=== PATIENT | female | born 1940 | race Hispanic/Latino ===

== ENCOUNTER 2016-06-22 16:46 | Emergency (ER) | payer MEDICARE, MEDICAID ==
[2016-06-22 17:46] LABS: ALT (SGPT) 12 U/L (0-55); AST (SGOT) 18 U/L (5-34); Alkaline Phosphatase 99 U/L (40-150); Anion Gap 15 mmol/L (10-20); BUN (Urea Nitrogen) 19 mg/dL (9.8-20.1); Bilirubin, Total 0.4 mg/dL (0.2-1.2); Calc. Creatinine Clearance 0 mL/min (70-130); Calcium 9.4 mg/dL (7.8-10.44); Carbon Dioxide 21 mmol/L (23-31); Chloride 104 mmol/L (98-107); Estimated GFR-MDRD 27; Globulin 3.3 g/dL (2.4-3.5); Protein, Total 7.3 g/dL (5.8-8.1)
[2016-06-22 17:54] LABS: Bilirubin Negative (Negative); Blood, Urine Small (Negative); Glucose, Urine (Dipstick) Negative (Negative); Ketone, Urine Negative (Negative); Nitrite Negative (Negative); Protein, Urine (Dipstick) 100 mg/dL (Neg-Trace)
[2016-06-22 17:59] LABS: Bacteria/HPF 3+ HPF (None Seen); WBC/HPF 21-50 HPF (0-3)
[2016-06-22 18:13] LABS: Band 1 % (5-11); Hematocrit 33.2 % (36.0-47.0); Mean Platelet Volume 8.1 fL (7.4-10.4); Neutrophil 77 % (42-75); Red Blood Cell (RBC) Count 3.79 mill/uL (4.20-5.40); White Blood Cell (WBC) Count 9.2 thou/uL (4.8-10.8)
[2016-06-22] MEDS ORDERED: Ciprofloxacin 500 MG TAB ONE (18:37)
--- NOTE | 2016-06-22 18:46 | ERRECORD ---
[facility] EMERGENCY RECORD HPI PNEUMONIA (17:14 JLOY) CHIEF COMPLAINT: Patient presents for evaluation of chest pain, Patient presents for evaluation of cough, non-productive, Patient presents for evaluation of fever, subjective, Patient presents for evaluation of shortness of breath, Patient presents for evaluation of Pt with cough for 'some time', at least a couple weeks. Worse x6 days with subj fever at night, left sided chest and back pain with cough or deep breath, and SOB. Reports it feels like her previous pneumonia. HISTORIAN: History provided by patient. LOCATION: Symptoms are localized, most severe in the left upper chest. TIME COURSE: Gradual onset of symptoms, Symptoms are worsening. ASSOCIATED WITH: Associated with chest pain, Associated with chills, Associated with dyspnea on exertion, Associated with fever, No associated nasal congestion, Associated with shortness of breath. COMPLICATING FACTORS: Complicating factors for pneumonia include:, recent antibiotics, started bactrim for UTI 4 days ago. EXACERBATED BY: Patient's condition exacerbated by deep breaths. RELIEVED BY: Patient's condition relieved by nothing. ROS (17:17 JLOY) CONSTITUTIONAL: Historian reports chills, reports fever. EYES: Historian denies eye pain, denies eye redness, denies eye discharge. ENT: Historian denies rhinorrhea, denies sore throat. CARDIOVASCULAR: Historian reports chest pain, pleuritic, Historian reports dyspnea on exertion. RESPIRATORY: Historian reports cough, reports shortness of breath, denies sputum. GI: Historian denies abdominal pain, denies diarrhea, reports nausea, denies vomiting. GENITOURINARY FEMALE: Historian reports dysuria, denies frequency, denies hematuria. lower abd pain with urination for which her PCP started Bactrim 4 days ago. No change. MUSCULOSKELETAL: Historian reports back pain. SKIN: Historian denies rash, denies skin changes. NEUROLOGIC: Historian denies dizziness, occasional YU. PAST MEDICAL HISTORY MEDICAL HISTORY: Notes: as listed plus, Past medical history includes history of diabetes, Pill only, Past medical history includes endocrine disease, hypothyroidism,includes gastrointestinal disease, gastroesophageal reflux disease,history of hyperlipidemia, high cholesterol,history of hypertension,pulmonary disease, pneumonia. includes gastrointestinal &a-1R&a+25V*p+0X*v2001I*c202B*c15G*c2P*p-0X&a-25V&a+1R Name: Dionne Wise : 1940 F75 MedRec: [id number] AcctNum: [id number] Prepared: WedJun 22, 2016 19:04 by Interface Page [address] [facility] EMERGENCY RECORD disease, lower gastrointestinal bleed. (16:57 GHIA) FEMALE SURGICAL HISTORY: as listed, Surgical history of cholecystectomy, Surgical history of hysterectomy. (16:57 GHIA) PSYCHIATRIC HISTORY: Psychiatric history includes, anxiety. (16:57 GHIA) SOCIAL HISTORY: Social History includes lives alone, Patient denies alcohol use, Patient denies drug use, Patient currently uses tobacco, smokes cigarettes, Occasional or some day smoker. (16:57 GHIA) NOTES: Nursing records reviewed, Agree with nursing records. (17:18 OY) KNOWN ALLERGIES No Known Allergies (Unconfirmed) No Known Drug Allergies CURRENT MEDICATIONS Tradjenta: TABLET : Strength - 5 mg : ORAL Patient Dose: 1 tab(s) Oral once a day (in the morning). (16:58 MSPE) enalapril maleate: TABLET : Strength - 20 mg : ORAL Patient Dose: 2 tab(s) Oral once a day (in the morning). (16:58 MSPE) metFORMIN: TABLET : Strength - 500 mg : ORAL Patient Dose: 2 tab(s) Oral 2 times a day. (16:58 MSPE) levothyroxine: TABLET : Strength - 50 mcg : ORAL Patient Dose: 2 tab(s) Oral once a day (in the morning). (16:58 MSPE) glipiZIDE: TABLET : Strength - 10 mg : ORAL Patient Dose: 20 mg Oral once a day (in the morning). (16:58 MSPE) clopidogrel: TABLET : Strength - 75 mg : ORAL Patient Dose: 1 tab(s) Oral once a day. (16:59 MSPE) ranitidine HCl: TABLET : Strength - 150 mg : ORAL Patient Dose: 1 tab(s) Oral 2 times a day. (16:59 MSPE) atorvastatin: TABLET : Strength - 40 mg : ORAL Patient Dose: 1 tab(s) Oral once a day (at bedtime). (17:00 MSPE) carvedilol: TABLET : Strength - 3.125 mg : ORAL Patient Dose: 1 tab(s) Oral 2 times a day. (17:01 MSPE) &a-1R&a+25V*p+0X*[id number]*c202B*c15G*c2P*p-0X&a-25V&a+1R Name: Dionne Wise : 1940 F75 MedRec: [id number] AcctNum: [id number] Prepared: WedJun 22, 2016 19:04 by Interface Page [address] [facility] EMERGENCY RECORD Bactrim DS: TABLET : Strength - 800 mg-160 mg : ORAL Patient Dose: 1 tab(s) Oral 2 times a day.started 06/18/16 x 10 days for UTI. (17:01 MSPE) VITAL SIGNS VITAL SIGNS: BP: 107/77, Pulse: 103, Resp: 19, Temp: 99.0 (Oral), Pain: 8, O2 sat: 98 on Room Air, Time: 06/22/2016 16:52. (16:52 GHIA) BP: 108/75, Pulse: 86, Resp: 16, O2 sat: 96 on Room Air, Time: 06/22/2016 18:40. (18:40 MSPE) BP: 105/63, Pulse: 93, Resp: 24, O2 sat: 96 on Room Air, Time: 06/22/2016 17:45. (17:45 MSPE) BP: 97/65, Pulse: 92, Resp: 24, O2 sat: 97 on Room Air, Time: 06/22/2016 18:00. (18:00 MSPE) PHYSICAL EXAM (17:18 JLOY) CONSTITUTIONAL: Vital signs reviewed, Patient appears non toxic, Patient alert and oriented to person, place and time. EYES: Eye exam included findings of eyelids normal to inspection, Pupils equally round and reactive to light, Conjunctiva normal. ENT: Pharynx exam normal, Uvula exam normal, Tonsil exam normal, Mouth exam normal, mucous membranes moist. NECK: Neck exam included findings of normal range of motion, Trachea midline, no cervical adenopathy. RESPIRATORY CHEST: Respiratory exam included findings of no respiratory distress, Breath sounds clear, No wheezing, No rales, No rhonchi, Chest exam included findings of chest movement symmetrical. CARDIOVASCULAR: Cardiovascular exam included findings of heart rate regular rate and rhythm, Heart sounds normal, normal S1, normal S2, no murmurs, no rub, no gallop. ABDOMEN FEMALE: Abdominal exam included findings of abdomen tender, to the epigastric region, mild intensity, Bowel sounds normal, Liver normal, Spleen normal, no peritoneal signs, no rigidity, no guarding, no rebound. BACK: Back exam included findings of normal inspection, range of motion normal. UPPER EXTREMITY: Upper extremity exam included findings of inspection normal, Radial pulse normal, no cyanosis, no clubbing, no edema. LOWER EXTREMITY: Lower extremity exam included findings of inspection normal, no edema, no calf tenderness. NEURO: Laura coma scale 15, Neuro exam findings include patient oriented to person, place and time, Speech normal. SKIN: Skin exam included findings of skin warm, dry, and normal in color, no rash. PSYCHIATRIC: Normal affect. MEDICATION ADMINISTRATION SUMMARY Drug Name: ciprofloxacin HCl oral, Dose Ordered: 500 mg, Route: Oral, &a-1R&a+25V*p+0X*[id number]*c202B*c15G*c2P*p-0X&a-25V&a+1R Name: Dionne Wise : 1940 F75 MedRec: [id number] AcctNum: [id number] Prepared: WedJun 22, 2016 19:04 by Interface Page [address] [facility] EMERGENCY RECORD Status: Given, Time: 18:39 06/22/2016, Detailed record available in Medication Service section. PROBLEM LIST No recorded problems DIAGNOSIS (18:28 THEA) FINAL: PRIMARY: UTI, ADDITIONAL: Acute bronchitis. PRESCRIPTION (18:27 THEA) ciprofloxacin HCl oral: TABLET : 500 mg : ORAL : Quantity: 500 Unit: mg Route: ORAL Schedule: 2 times a day Dispense: 5 days May substitute. Refills: No Refills . NOTES: No Refills. DISPOSITION PATIENT: Disposition Type: Discharge, Disposition: *Discharge Home. (18:28 THEA) Patient left the department. (19:01 TROY) Trejo: GABI=RANI Becerra, Vikki SIDHU=MD Arun, Moise WALKERE=RANI Mcnamara, Francia &a-1R&a+25V*p+0X*[id number]*c202B*c15G*c2P*p-0X&a-25V&a+1R Name: Dionne Wise : 1940 F75 MedRec: [id number] AcctNum: [id number] Prepared: WedJun 22, 2016 19:04 by Interface Page 4 of 4 pMD MTDD
--- NOTE | 2016-06-22 18:56 | PICIS ---
[facility] EMERGENCY RECORD TRIAGE (16:52 GHIA) TRIAGE NOTES: Fever, bodyaches,cough (non productive). (16:52 GHIA) PATIENT: NAME: Dionne Wise, AGE: 75, GENDER: female, : Maria Guadalupe 1940, TIME OF GREET: WedJun 22, 2016 16:48, PREFERRED LANGUAGE: Syriac, ETHNICITY: or , ECODE BILLING MAP: [facility] ER, SSN: [id number], Zip Code: [address], KG WEIGHT: 62.60, , , PERSON ID: [id number], PCP: MD Prajapati Katherine. (16:52 GHIA) PHONE: HOME. (16:59) COMPLAINT: FEVER SINCE SAT,OFF/ON,HURTS TO BREATHE. (16:52 GHIA) ADMISSION: URGENCY: 3 Urgent, ADMISSION SOURCE: Home, TRANSPORT: CAR, BED: TRIAGE. (16:52 GHIA) ASSESSMENT: Assessment: Pt with pain with deep breath, fever, bodyaches; feels like "pneumonia" she had before. (16:57 GHIA) PAIN: Patient complains of pain described as, Location with deep breath, Pain is constant. (16:57 GHIA) IMMUNIZATIONS: Flu vaccine up to date, Tetanus immunization up to date, Pneumococcal vaccine up to date. (16:57 GHIA) SIRS SCORING: Heart Rate 55-109 (0), Temp range 96.8-101.1 (0), respiratory rate 12-24 (0), Mental Status altered: no (0). (16:57 GHIA) TRIAGE SCREENING: Patient denies suicidal ideation, Patient denies presence of domestic violence. (16:57 GHIA) LMP: LMP: Hysterectomy. (16:57 GHIA) TREATMENTS IN PROGRESS: Treatments given Prehospital: no meds today. (16:57 GHIA) PROVIDERS: TRIAGE NURSE: Vikki Becerra RN. (16:52 GHIA) VITAL SIGNS: BP 107/77, Pulse 103, Resp 19, Temp 99.0, (Oral), Pain 8, O2 Sat 98, on Room Air, Time 06/22/2016 16:52. (16:52 GHIA) PREVIOUS VISIT ALLERGIES: No Known Drug Allergies. (16:52 GHIA) No Known Drug Allergies. (16:57 GHIA) KNOWN ALLERGIES No Known Allergies (Unconfirmed) No Known Drug Allergies CURRENT MEDICATIONS Tradjenta: TABLET : Strength - 5 mg : ORAL Patient Dose: 1 tab(s) Oral once a day (in the morning). (16:58 MSPE) enalapril maleate: TABLET : Strength - 20 mg : ORAL Patient Dose: 2 tab(s) Oral once a day (in the morning). (16:58 MSPE) metFORMIN: TABLET : Strength - 500 mg : ORAL Patient Dose: 2 tab(s) Oral 2 times a day. (16:58 MSPE) &a-1R&a+25V*p+0X*r4966K*c202B*c15G*c2P*p-0X&a-25V&a+1R Name: Dionne Wise : 1940 F75 MedRec: [id number] AcctNum: [id number] Prepared: WedJun 22, 2016 19:10 by Interface Page 1 of 8 pMD [facility] EMERGENCY RECORD levothyroxine: TABLET : Strength - 50 mcg : ORAL Patient Dose: 2 tab(s) Oral once a day (in the morning). (16:58 MSPE) glipiZIDE: TABLET : Strength - 10 mg : ORAL Patient Dose: 20 mg Oral once a day (in the morning). (16:58 MSPE) clopidogrel: TABLET : Strength - 75 mg : ORAL Patient Dose: 1 tab(s) Oral once a day. (16:59 MSPE) ranitidine HCl: TABLET : Strength - 150 mg : ORAL Patient Dose: 1 tab(s) Oral 2 times a day. (16:59 MSPE) atorvastatin: TABLET : Strength - 40 mg : ORAL Patient Dose: 1 tab(s) Oral once a day (at bedtime). (17:00 MSPE) carvedilol: TABLET : Strength - 3.125 mg : ORAL Patient Dose: 1 tab(s) Oral 2 times a day. (17:01 MSPE) Bactrim DS: TABLET : Strength - 800 mg-160 mg : ORAL Patient Dose: 1 tab(s) Oral 2 times a day.started 06/18/16 x 10 days for UTI. (17:01 MSPE) VITAL SIGNS VITAL SIGNS: BP: 107/77, Pulse: 103, Resp: 19, Temp: 99.0 (Oral), Pain: 8, O2 sat: 98 on Room Air, Time: 06/22/2016 16:52. (16:52 GHIA) BP: 108/75, Pulse: 86, Resp: 16, O2 sat: 96 on Room Air, Time: 06/22/2016 18:40. (18:40 MSPE) BP: 105/63, Pulse: 93, Resp: 24, O2 sat: 96 on Room Air, Time: 06/22/2016 17:45. (17:45 MSPE) BP: 97/65, Pulse: 92, Resp: 24, O2 sat: 97 on Room Air, Time: 06/22/2016 18:00. (18:00 MSPE) NURSING ASSESSMENT: HEAD-TO-TOE (16:57 GHIA) CONSTITUTIONAL: Patient arrives, via hospital wheelchair, Gait steady, History obtained from patient, Patient appears comfortable, Patient cooperative, Patient alert, Oriented to person, place and time, Skin warm, Skin dry, Skin normal in color, Mucous membranes pink, Mucous membranes moist, Patient is well-groomed, Patient complains of Pain with deep breath; fever; bodyaches, Pt in room in bed in gown. Assess. Plan of care of pt in Er discussed. PAIN: aching pain, chest with deep breath, Onset of pain 6 days ago, constant, on a scale 0-10 patient rates pain as 8, pt is currently on antibx for bladder infection. SKIN: Skin assessment findings include skin warm, Skin dry, Skin normal in color, Notes: intact. &a-1R&a+25V*p+0X*x5881R*c202B*c15G*c2P*p-0X&a-25V&a+1R Name: Dionne Wise : 1940 F75 MedRec: [id number] AcctNum: [id number] Prepared: WedJun 22, 2016 19:10 by Interface Page 2 of 8 pMD [facility] EMERGENCY RECORD RESPIRATORY/CHEST: Respiratory assessment findings include respiratory effort easy, Associated with cough, non-productive, Associated with fever, Maximum temperature unk temp per pt, oral. CARDIOVASCULAR: Cardiovascular assessment findings include heart rate, tachycardic, Heart rhythm, sinus tachycardia. ABDOMEN: Abdomen assessment findings include abdomen symmetrical, no associated nausea, no associated vomiting, no associated diarrhea, no associated constipation. GENITOURINARY FEMALE: Associated with urinary complaints, burning, a foul odor, 5 days on antibx, Notes: Pt states she doesn't feel like she is getting better. NOTES: Emotional support needed and given, Patient tolerated procedure well. SAFETY: Side rails up, Cart/Stretcher in lowest position, Family at bedside, Call light within reach, Hospital ID band on. NURSING PROCEDURE: DISCHARGE NOTE (18:47 MSPE) DISCHARGE: Patient discharged to home, ambulating without assistance, accompanied by other family member, Summary of Care printed/ provided, Discharge instructions given to patient, Simple or moderate discharge teaching performed, Prescriptions given and instructions on side effects given, Above person(s) verbalized understanding of discharge instructions and follow-up care, Patient treated and evaluated by physician. BELONGINGS: Belongings remain with patient. NURSING PROCEDURE: IV (17:20 GHIA) PATIENT IDENITIFIER: Patient actively involved in identification process, Patient's identity verified by patient stating name, Patient's identity verified by hospital ID bracelet. IV SITE 1: IV established, to the right antecubital, using a 20 gauge catheter, in one attempt, IV site prepped with chloraprep, Labs drawn at time of placement, labeled in the presence of the patient and sent to lab. FOLLOW-UP SITE 1: After procedure, 2x3 ensure dressing applied, After procedure, no swelling at IV site, After procedure, no redness at IV site. NOTES: Emotional support needed and given, Patient tolerated procedure well. SAFETY: Side rails up, Cart/Stretcher in lowest position, Call light within reach, Hospital ID band on, Friend(s) at bedside. NURSING PROCEDURE: NURSE NOTES NURSES NOTES: Notes: Er at bedside. (17:11 GHIA) Notes: Pt cheerful and cooperative for IV start. (17:26 GHIA) Patient assisted to bathroom with steady gait, Patient in no apparent distress, Assistance offered to patient, Notes: I walked with &a-1R&a+25V*p+0X*d3927S*c202B*c15G*c2P*p-0X&a-25V&a+1R Name: Dionne Wise : 1940 F75 MedRec: [id number] AcctNum: [id number] Prepared: WedJun 22, 2016 19:10 by Interface Page 3 of 8 pMD [facility] EMERGENCY RECORD pt. (17:30 GHIA) Assistance offered to patient, Patient is awaiting results, Notes: Pt back to room; gait slightly unstready. (17:40 GHIA) Notes: Pt to RAD via wheelchair. (17:41 GHIA) Notes: Er Dr at bedside. (18:22 GHIA) Notes: IV dc'd with cath intact. 2x2 dressing applied. (18:45 MSPE) ORDER DETAILS Order Name: CBC with Differential, Status: Active, Time: 17:14 06/22/2016, User: THEA, - Ordered for: MD Dias Joshua, - Entered by: MD Dias Joshua - [facility] Jun 22, 2016 17:14, - Quantity: 1, Order Name: Comprehensive Metabolic Panel, Status: Active, Time: 17:14 06/22/2016, User: THEA, - Ordered for: MD Dias Joshua, - Entered by: MD Dias Joshua - [facility] Jun 22, 2016 17:14, - Quantity: 1, Order Name: Culture, Urine, Status: Active, Time: 18:20 06/22/2016, User: THEA, - Ordered for: MD Dias Joshua, - Entered by: MD Dias Joshua - [facility] Jun 22, 2016 18:20, - Quantity: 1, Order Name: Influenza A&B Ag Screen, Status: Active, Time: 17:33 06/22/2016, User: GABI, - Ordered for: MD Dias Joshua, - Entered by: RANI Becerra, Vikki - [facility] Jun 22, 2016 17:33, - Quantity: 1, Order Name: Lactic Acid with repeat, Status: Active, Time: 17:19 06/22/2016, User: THEA, - Ordered for: MD Dias Joshua, - Entered by: MD Dias Joshua - [facility] Jun 22, 2016 17:19, - Quantity: 1, Order Name: SALINE LOCK, Status: Done, Time: 17:27 06/22/2016, User: GABI, - Ordered for: MD Dias Joshua, - Entered by: MD Dias Joshua - [facility] Jun 22, 2016 17:14, - Quantity: 1, Order Name: Urinalysis with Microscopic, Status: Active, Time: 17:19 06/22/2016, User: THEA, - Ordered for: MD Dias Joshua, - Entered by: MD Dias Joshua - [facility] Jun 22, 2016 17:19, - Quantity: 1, Order Name: XR Chest Pa & Lat STANDARD, Status: Active, Time: 17:14 06/22/2016, User: THEA, - Ordered for: MD Dias Joshua, - Entered by: MD Dias Joshua - [facility] Jun 22, 2016 17:14, - Quantity: 1. &a-1R&a+25V*p+0X*c2241X*c202B*c15G*c2P*p-0X&a-25V&a+1R Name: Dionne Wise : 1940 F75 MedRec: [id number] AcctNum: [id number] Prepared: WedJun 22, 2016 19:10 by Interface Page 4 of 8 D [facility] EMERGENCY RECORD MEDICATION ADMINISTRATION SUMMARY Drug Name: ciprofloxacin HCl oral, Dose Ordered: 500 mg, Route: Oral, Status: Given, Time: 18:39 06/22/2016, Detailed record available in Medication Service section. MEDICATION SERVICE (18:39 THEA) ciprofloxacin HCl oral: Order: ciprofloxacin HCl oral (ciprofloxacin HCl) - Dose: 500 mg : Oral Ordered by: Moise Dias MD Entered by: Moise Dias MD WedJun 22, 2016 18:26 , Acknowledged by: Francia Mcnamara RN WedJun 22, 2016 18:37 Documented as given by: Francia Mcnamara RN WedJun 22, 2016 18:39 Patient, Medication, Dose, Route and Time verified prior to administration. Amount given: 500mg, Site: Medication administered P.O., Patient appears Awake and alert- acceptable, Correct patient, time, route, dose and medication confirmed prior to administration, Patient advised of actions and side-effects prior to administration, Allergies confirmed and medications reviewed prior to administration, Patient in position of comfort, Side rails up, Cart in lowest position, Family at bedside. HPI PNEUMONIA (17:14 [facility]) CHIEF COMPLAINT: Patient presents for evaluation of chest pain, Patient presents for evaluation of cough, non-productive, Patient presents for evaluation of fever, subjective, Patient presents for evaluation of shortness of breath, Patient presents for evaluation of Pt with cough for 'some time', at least a couple weeks. Worse x6 days with subj fever at night, left sided chest and back pain with cough or deep breath, and SOB. Reports it feels like her previous pneumonia. HISTORIAN: History provided by patient. LOCATION: Symptoms are localized, most severe in the left upper chest. TIME COURSE: Gradual onset of symptoms, Symptoms are worsening. ASSOCIATED WITH: Associated with chest pain, Associated with chills, Associated with dyspnea on exertion, Associated with fever, No associated nasal congestion, Associated with shortness of breath. COMPLICATING FACTORS: Complicating factors for pneumonia include:, recent antibiotics, started bactrim for UTI 4 days ago. EXACERBATED BY: Patient's condition exacerbated by deep breaths. RELIEVED BY: Patient's condition relieved by nothing. ROS (17:17 [facility]) CONSTITUTIONAL: Historian reports chills, reports &a-1R&a+25V*p+0X*i8641W*c202B*c15G*c2P*p-0X&a-25V&a+1R Name: Dionne Wise : 1940 F75 MedRec: [id number] AcctNum: [id number] Prepared: WedJun 22, 2016 19:10 by Interface Page 5 of 8 pMD [facility] EMERGENCY RECORD fever. EYES: Historian denies eye pain, denies eye redness, denies eye discharge. ENT: Historian denies rhinorrhea, denies sore throat. CARDIOVASCULAR: Historian reports chest pain, pleuritic, Historian reports dyspnea on exertion. RESPIRATORY: Historian reports cough, reports shortness of breath, denies sputum. GI: Historian denies abdominal pain, denies diarrhea, reports nausea, denies vomiting. GENITOURINARY FEMALE: Historian reports dysuria, denies frequency, denies hematuria. lower abd pain with urination for which her PCP started Bactrim 4 days ago. No change. MUSCULOSKELETAL: Historian reports back pain. SKIN: Historian denies rash, denies skin changes. NEUROLOGIC: Historian denies dizziness, occasional YU. PAST MEDICAL HISTORY MEDICAL HISTORY: Notes: as listed plus, Past medical history includes history of diabetes, Pill only, Past medical history includes endocrine disease, hypothyroidism,includes gastrointestinal disease, gastroesophageal reflux disease,history of hyperlipidemia, high cholesterol,history of hypertension,pulmonary disease, pneumonia. includes gastrointestinal disease, lower gastrointestinal bleed. (16:57 GHIA) FEMALE SURGICAL HISTORY: as listed, Surgical history of cholecystectomy, Surgical history of hysterectomy. (16:57 GHIA) PSYCHIATRIC HISTORY: Psychiatric history includes, anxiety. (16:57 GHIA) SOCIAL HISTORY: Social History includes lives alone, Patient denies alcohol use, Patient denies drug use, Patient currently uses tobacco, smokes cigarettes, Occasional or some day smoker. (16:57 GHIA) NOTES: Nursing records reviewed, Agree with nursing records. (17:18 JLOY) PHYSICAL EXAM (17:18 JLOY) CONSTITUTIONAL: Vital signs reviewed, Patient appears non toxic, Patient alert and oriented to person, place and time. EYES: Eye exam included findings of eyelids normal to inspection, Pupils equally round and reactive to light, Conjunctiva normal. ENT: Pharynx exam normal, Uvula exam normal, Tonsil exam normal, Mouth exam normal, mucous membranes moist. NECK: Neck exam included findings of normal range of motion, Trachea midline, no cervical adenopathy. RESPIRATORY CHEST: Respiratory exam included findings of no respiratory distress, Breath sounds clear, No wheezing, No rales, No rhonchi, Chest exam included findings of chest movement symmetrical. CARDIOVASCULAR: Cardiovascular exam included findings of heart &a-1R&a+25V*p+0X*t7424T*c202B*c15G*c2P*p-0X&a-25V&a+1R Name: Dionne Wise : 1940 F75 MedRec: [id number] AcctNum: [id number] Prepared: WedJun 22, 2016 19:10 by Interface Page 6 of 8 pMD BISHOP - [facility] EMERGENCY RECORD rate regular rate and rhythm, Heart sounds normal, normal S1, normal S2, no murmurs, no rub, no gallop. ABDOMEN FEMALE: Abdominal exam included findings of abdomen tender, to the epigastric region, mild intensity, Bowel sounds normal, Liver normal, Spleen normal, no peritoneal signs, no rigidity, no guarding, no rebound. BACK: Back exam included findings of normal inspection, range of motion normal. UPPER EXTREMITY: Upper extremity exam included findings of inspection normal, Radial pulse normal, no cyanosis, no clubbing, no edema. LOWER EXTREMITY: Lower extremity exam included findings of inspection normal, no edema, no calf tenderness. NEURO: [place] coma scale 15, Neuro exam findings include patient oriented to person, place and time, Speech normal. SKIN: Skin exam included findings of skin warm, dry, and normal in color, no rash. PSYCHIATRIC: Normal affect. EVENTS TRANSFER: Triage to Emergency Triage. (WedJun 22, 2016 16:52 GHIA) Emergency Triage to Emergency Room -02. (17:04 MSPE) Removed from Emergency Emergency Room -02. (19:01 MSPE) PROBLEM LIST No recorded problems DIAGNOSIS (18:28 JLOY) FINAL: PRIMARY: UTI, ADDITIONAL: Acute bronchitis. DISPOSITION PATIENT: Disposition Type: Discharge, Disposition: *Discharge Home. (18:28 JLOY) Patient left the department. (19:01 MSPE) INSTRUCTION (18:28 JLOY) DISCHARGE: UTI CYSTITIS FEMALE ADULT, BRONCHITIS, NO ABX (ADULT), PLEURISY. FOLLOWUP: MD Prajapati Katherine, [facility], [facility] [facility], [facility] [address], , Follow up with Primary Care Physician in 7-10 days. PRESCRIPTION (18:27 JLOY) ciprofloxacin HCl oral: TABLET : 500 mg : ORAL : Quantity: 500 Unit: mg Route: ORAL Schedule: 2 times a day Dispense: 5 days May substitute. Refills: No Refills . NOTES: No Refills. &a-1R&a+25V*p+0X*k9005J*c202B*c15G*c2P*p-0X&a-25V&a+1R Name: Dionne Wise: 1940 F75 MedRec: [id number] AcctNum: [id number] Prepared: WedJun 22, 2016 19:10 by Interface Page 7 of 8 pMD [facility] EMERGENCY RECORD IMAGING (19:01 MSPE) *DISCHARGE INSTRUCTIONS RECEIPT: Image captured from scanner. *SUPPLY CHARGE SHEET: Image captured from scanner. ADMIN (18:28 THEA) DIGITAL SIGNATURE: MD Dias Joshua. Trejo: GHIA=RANI Becerra, Vikki THEA=MD Dias Joshua MSPE=RANI Mcnamara, Francia &a-1R&a+25V*p+0X*s8156R*c202B*c15G*c2P*p-0X&a-25V&a+1R Name: Dionne Wise : 1940 F75 MedRec: [id number] AcctNum: [id number] Prepared: WedJun 22, 2016 19:10 by Interface Page 8 of 8 pMD [facility] MEDICATION RECONCILIATION You were seen in the Emergency Department on: WedJun 22, 2016 KNOWN ALLERGIES No Known Allergies (Unconfirmed) No Known Drug Allergies MEDICATIONS GIVEN WHILE IN THE EMERGENCY DEPARTMENT ciprofloxacin HCl oral (ciprofloxacin HCl) - Dose: 500 milligram(s) : Oral HOME MEDICATIONS CONTINUE PRESCRIBED atorvastatin : TABLET : Strength - 40 mg : ORAL Continue as prescribed Patient had been takin tab(s) Oral once a day (at bedtime). carvedilol : TABLET : Strength - 3.125 mg : ORAL Continue as prescribed Patient had been takin tab(s) Oral 2 times a day. clopidogrel : TABLET : Strength - 75 mg : ORAL Continue as prescribed Patient had been takin tab(s) Oral once a day. enalapril maleate : TABLET : Strength - 20 mg : ORAL Continue as prescribed Patient had been takin tab(s) Oral once a day (in the morning). glipiZIDE : TABLET : Strength - 10 mg : ORAL Continue as prescribed Patient had been takin mg Oral once a day (in the morning). levothyroxine : TABLET : Strength - 50 mcg : ORAL Continue as prescribed Patient had been takin tab(s) Oral once a day (in the morning). metFORMIN : TABLET : Strength - 500 mg : ORAL Continue as prescribed Patient had been takin tab(s) Oral 2 times a day. &a-1R&a+25V*p+0X*u7740J*c202B*c15G*c2P*p-0X&a-25V&a+1R Name: Dionne Wise : 1940 F75 MedRec: [id number] AcctNum: [id number] Prepared: WedJun 22, 2016 19:10 by Interface pMD [facility] MEDICATION RECONCILIATION ranitidine HCl : TABLET : Strength - 150 mg : ORAL Continue as prescribed Patient had been takin tab(s) Oral 2 times a day. Tradjenta : TABLET : Strength - 5 mg : ORAL Continue as prescribed Patient had been takin tab(s) Oral once a day (in the morning). STOP TAKING THIS MEDICATION Bactrim DS : TABLET : Strength - 800 mg-160 mg : ORAL Stop taking this medication Patient had been takin tab(s) Oral 2 times a day. Comment: started 06/18/16 x 10 days for UTI. PRESCRIPTIONS (1) &a-1R&a+25V*p+0X*h3285E*c202B*c15G*c2P*p-0X&a-25V&a+1R Name: Dionne Wise : 1940 F75 MedRec: [id number] AcctNum: [id number] Prepared: WedJun 22, 2016 19:10 by Interface pMD MTDD
--- NOTE | 2016-06-22 19:00 | RAD ---
RADIOGRAPH CHEST 2 VIEWS: HISTORY: 75-year-old female with fever, dyspnea, and acute cough. FINDINGS: There is no air space density, pulmonary edema, pleural effusion, pneumothorax, or cardiomegaly. IMPRESSION: No acute cardiopulmonary findings. juan ramon POS: MERRICK
== END 2016-06-22 18:47 | disposition home or self-care (01) ==
LOC: NAV ERS 16:46
DX: J20.9 Acute bronchitis, unspecified (principal); N39.0 Urinary tract infection, site not specified; F17.210 Nicotine dependence, cigarettes, uncomplicated; E11.9 Type 2 diabetes mellitus without complications; E03.9 Hypothyroidism, unspecified; K21.9 Gastro-esophageal reflux disease without esophagitis; E78.5 Hyperlipidemia, unspecified; I10 Essential (primary) hypertension
CPT/HCPCS: 71020; 80053; 81001; 83605; 85025; 87077; 87086; 99285

== ENCOUNTER 2016-07-13 15:51 | Emergency (ER) | payer MEDICARE, OTHER ==
[~2016-07-13 15:51] MED LIST: Iopamidol 370 76% 100 ML VIAL ONE
[2016-07-13 17:42] LABS: #Basophils 0.1 thou/uL (0.0-0.2); #Eosinphils 0.2 thou/uL (0.0-0.7); #Lymphocytes 2.4 thou/uL (1.20-3.40); #Monocytes 0.5 thou/uL (0.11-0.59); #Neutrophils 2.7 thou/uL (1.40-6.50); %Basophils 1.2 % (0.0-1.0); %Eosinophils 3.9 % (0.0-10.0); %Lymphocytes 40.5 % (21.0-51.0); %Monocytes 7.7 % (0.0-10.0); Hematocrit 31.7 % (36.0-47.0); Mean Platelet Volume 7.5 fL (7.4-10.4); Red Blood Cell (RBC) Count 3.53 mill/uL (4.20-5.40); White Blood Cell (WBC) Count 5.8 thou/uL (4.8-10.8)
[2016-07-13] MEDS ORDERED: cefTRIAXone\\ROCEPHIN 1 GM VIAL ONE (17:50)
[2016-07-13 17:51] LABS: Lactic Acid - Sepsis 1.2 mmol/L (0.5-2.2)
[2016-07-13 17:56] LABS: ALT (SGPT) 11 U/L (0-55); AST (SGOT) 14 U/L (5-34); Alkaline Phosphatase 99 U/L (40-150); Anion Gap 16 mmol/L (10-20); BUN (Urea Nitrogen) 14 mg/dL (9.8-20.1); Bilirubin, Total 0.4 mg/dL (0.2-1.2); Calc. Creatinine Clearance 0 mL/min (70-130); Calcium 9.8 mg/dL (7.8-10.44); Carbon Dioxide 22 mmol/L (23-31); Chloride 107 mmol/L (98-107); Estimated GFR-MDRD 54; Globulin 3.5 g/dL (2.4-3.5); Protein, Total 7.5 g/dL (5.8-8.1)
[2016-07-13 18:19] LABS: Bilirubin Negative (Negative); Blood, Urine Negative (Negative); Glucose, Urine (Dipstick) Negative (Negative); Ketone, Urine Trace mg/dL (Negative); Nitrite Negative (Negative); Protein, Urine (Dipstick) Trace mg/dL (Neg-Trace)
[2016-07-13] MEDS ORDERED: Sodium Chloride 0.9% 100 ML ONE (18:26)
[2016-07-13 18:33] LABS: Bacteria/HPF 3+ HPF (None Seen); RBC/HPF 0-3 HPF (0-3); Squamous Epithelial 0-3 HPF (0-3); WBC/HPF 21-50 HPF (0-3)
[2016-07-13] MEDS ORDERED: Ondansetron HCl/PF 4 MG/2 ML Vial ONE (20:44)
--- NOTE | 2016-07-13 20:45 | CT ---
CT ABDOMEN AND PELVIS WITH IV AND ORAL CONTRAST: History: Abdominal pain. Comparison: 06-20-14 FINDINGS: Calcified granulomata at the lung bases are consistent with healed granulomatous disease. The gallb ladder is surgically absent. Fusiform ectasia of the abdominal aorta and prominent arterial calcifi cation is again demonstrated. Scattered diverticula arise from the colon without adjacent inflammation apparent. Urinary bladder is incompletely distended. Adenoma associated with the right adrenal gland is stable. There are subtle irregular shaped areas of decreased perfusion involving the anterior midportion of the right kidney and the lateral portion of the left kidney. No hydronephrosis is apparent. No urinary tract calcifications are visible. IMPRESSION: 1. Subtle heterogeneous contrast enhancement of each kidney as detailed above, possibly related to inflammation. Clinical correlation regarding other signs and symptoms of unilateral versus bilatera l nephritis is required. 2. Status post cholecystectomy. 3. Diverticulosis. No evidence of diverticulitis. 4. Atherosclerosis. POS: [facility]
--- NOTE | 2016-07-13 21:15 | ERRECORD ---
[facility] EMERGENCY RECORD HPI ABDOMINAL PAIN (17:19 JLOY) CHIEF COMPLAINTS: Patient presents for evaluation of abdominal pain, Patient presents for evaluation of Pt seen 1 week ago for UTI that was not improving on bactrim. Also for cough and fevers. Put on cipro. Pt reports cough mildly improved and only at night now. Fevers have persisted and she had a 102 fever last night. Pt also now with a few days of RUQ abd pain and right low back pain. Urinary symptoms have improved but urine smells 'bad'. HISTORIAN: History provided by patient. LOCATION FEMALE: Symptoms are localized, most severe in the right upper quadrant. QUALITY: Pain is dull in nature. TIME COURSE: Patient unable to describe onset of symptoms, Symptoms are constant. ASSOCIATED WITH FEMALE: Associated with chills, No associated constipation, No associated diarrhea, Associated with fever, No associated hematemesis, No associated hematuria, No associated nausea, No associated inability to tolerate oral intake, Associated with urinary tract infection signs or symptoms, dysuria, frequency, urine odor, No associated vomiting. RELIEVED BY: Patient's condition relieved by nothing. EXACERBATED BY: Patient's condition exacerbated by nothing. ROS (17:22 JLOY) CONSTITUTIONAL: Historian reports chills, reports fever. ENT: Historian denies rhinorrhea, denies sore throat. CARDIOVASCULAR: Historian denies chest pain. RESPIRATORY: Historian reports cough, denies shortness of breath. GI: Historian reports abdominal pain, denies constipation, denies diarrhea, denies nausea, denies vomiting. GENITOURINARY FEMALE: Historian reports dysuria, reports frequency. MUSCULOSKELETAL: Historian reports back pain. SKIN: Historian denies rash, denies skin changes. NEUROLOGIC: Historian denies dizziness, denies headache. PAST MEDICAL HISTORY MEDICAL HISTORY: Notes: as lsited, Notes: as listed plus, Past medical history includes history of diabetes, Pill only, Past medical history includes endocrine disease, hypothyroidism,includes gastrointestinal disease, gastroesophageal reflux disease,history of hyperlipidemia, high cholesterol,history of hypertension,pulmonary disease, pneumonia. includes gastrointestinal disease, lower gastrointestinal bleed. (16:04 GHIA) FEMALE SURGICAL HISTORY: as lsited, as listed, Surgical history of cholecystectomy, Surgical history of hysterectomy. (16:04 GHIA) PSYCHIATRIC HISTORY: Psychiatric history includes, &a-1R&a+25V*p+0X*[id number]*c202B*c15G*c2P*p-0X&a-25V&a+1R Name: Dionne Wise : 1940 F75 MedRec: [id number] AcctNum: [id number] Prepared: WedJul 13, 2016 21:49 by Interface Page 1 of 3 pMD [facility] EMERGENCY RECORD anxiety, Notes: as lsited, Psychiatric history includes, anxiety. (16:04 [place]) SOCIAL HISTORY: Social History includes lives alone, Patient drinks socially, rarely, Patient denies drug use, Patient currently uses tobacco, smokes cigarettes, Occasional or some day smoker, Social History includes lives alone, Patient denies alcohol use, Patient denies drug use, Patient currently uses tobacco, smokes cigarettes, Occasional or some day smoker. (16:04 [facility]) NOTES: Nursing records reviewed, Agree with nursing records. (17:26 [facility]) KNOWN ALLERGIES No Known Allergies (Unconfirmed) No Known Drug Allergies CURRENT MEDICATIONS No recorded medications VITAL SIGNS VITAL SIGNS: BP: 133/76, Pulse: 73, Resp: 17, Temp: 99.1 (Oral), Pain: 8, O2 sat: 100, Time: 07/13/2016 16:07. (16:07 [facility]) BP: 147/87, Pulse: 67, O2 sat: 99 on Room Air, Time: 07/13/2016 17:30. (17:30 [facility]) BP: 157/79, Pulse: 76, Resp: 18, Temp: 98.1 (Axillary), O2 sat: 99 on Room Air, Time: 07/13/2016 21:15. (21:15 [facility]) BP: 157/76, Pulse: 69, Resp: 18, O2 sat: 99 on Room Air, Time: 07/13/2016 19:00. (19:00 [facility]) Pain: 0, Time: 07/13/2016 21:21. (21:21 [facility]) PHYSICAL EXAM (17:24 [facility]) CONSTITUTIONAL: Vital Signs Reviewed. EYES: Eye exam included findings of eyelids normal to inspection, Pupils equally round and reactive to light, Conjunctiva normal. ENT: Pharynx exam normal, Uvula exam normal, Tonsil exam normal, Mouth exam normal, mucous membranes moist. NECK: Neck exam included findings of normal range of motion, Trachea midline. RESPIRATORY CHEST: Respiratory exam included findings of no respiratory distress, Breath sounds clear, No wheezing, No rales, No rhonchi. CARDIOVASCULAR: Cardiovascular exam included findings of heart rate regular rate and rhythm, Heart sounds normal. ABDOMEN FEMALE: Abdominal exam included findings of abdomen tender, to the right upper quadrant, moderate intensity, Bowel sounds normal, Liver normal, Spleen normal, no distension, no peritoneal signs, no rigidity, no guarding, no rebound. BACK: Back exam included findings of normal inspection, range of motion normal, Tenderness, paraspinal to the right &a-1R&a+25V*p+0X*[id number]*c202B*c15G*c2P*p-0X&a-25V&a+1R Name: Dionne Wise : 1940 F75 MedRec: [id number] AcctNum: [id number] Prepared: WedJul 13, 2016 21:49 by Interface Page 2 of 3 pMD [facility] EMERGENCY RECORD lower. UPPER EXTREMITY: Upper extremity exam included findings of inspection normal, Radial pulse normal, no cyanosis, no clubbing, no edema. LOWER EXTREMITY: Lower extremity exam included findings of inspection normal, no edema, no calf tenderness. NEURO: [facility] coma scale 15, Neuro exam findings include patient oriented to person, place and time, Speech normal. SKIN: Skin exam included findings of skin warm, dry, and normal in color, no rash. PSYCHIATRIC: Normal affect. MEDICATION ADMINISTRATION SUMMARY Drug Name: ondansetron HCl intravenous, Dose Ordered: 4 mg, Route: IV Push, Status: Given, Time: 20:57 07/13/2016, Drug Name: morphine injection, Dose Ordered: 4 mg, Route: IV Push, Status: Given, Time: 20:57 07/13/2016, Drug Name: cefTRIAXone injection, Dose Ordered: 1 g, Route: IV Piggy Back, Status: Given, Time: 20:34 07/13/2016, Detailed record available in Medication Service section. DOCTOR NOTES (20:50 JLOY) TEXT: Dr. Hubbard accepted the transfer to [facility]. PROBLEM LIST No recorded problems DIAGNOSIS (20:58 JLOY) FINAL: PRIMARY: UTI, ADDITIONAL: DISORDER KIDNEY AND URETER UNS. PRESCRIPTION No recorded prescriptions DISPOSITION PATIENT: Disposition Type: Transfer, Disposition: Transfer to [facility]. (20:58 THEA) Patient left the department. (21:47 EVELINA) Trejo: GABI=RANI Becerra, Vikki SIDHU=MD Arun, Moise HOYT=RANI Mendez, Jailene &a-1R&a+25V*p+0X*[id number]*c202B*c15G*c2P*p-0X&a-25V&a+1R Name: Dionne Wise : 1940 F75 MedRec: [id number] AcctNum: [id number] Prepared: WedJul 13, 2016 21:49 by Interface Page 3 of 3 pMD MTDD
--- NOTE | 2016-07-13 21:19 | PICIS ---
[facility] EMERGENCY RECORD TRIAGE (WedJul 13, 2016 16:00 GHIA) TRIAGE NOTES: Pt with RUQ abd pain. (WedJul 13, 2016 16:00 GHIA) PATIENT: NAME: Dionne Wise, AGE: 75, GENDER: female, : Wed1940, TIME OF GREET: WedJul 13, 2016 15:51, PREFERRED LANGUAGE: Upper Sorbian, ETHNICITY: or , ECODE BILLING MAP: [facility], SSN: [id number], Zip Code: [address], KG WEIGHT: 60.78, PHONE: , , , PERSON ID: [id number]. (WedJul 13, 2016 16:00 GHIA) COMPLAINT: RIGHT SIDE PAIN. (WedJul 13, 2016 16:00 GHIA) ADMISSION: URGENCY: 3 Urgent, ADMISSION SOURCE: Home, TRANSPORT: Walk-in, BED: TRIAGE. (WedJul 13, 2016 16:00 GHIA) ASSESSMENT: Assessment: RUq abd pain, Symptoms began 3 days. (16:04 GHIA) PAIN: Patient complains of pain described as, Location RUQ abd pain, Pain is constant. (16:04 GHIA) IMMUNIZATIONS: Flu vaccine up to date, Tetanus immunization up to date, Pneumococcal vaccine up to date. (16:04 GHIA) SIRS SCORING: Heart Rate 110-139 (2), Temp range 96.8-101.1 (0), respiratory rate 12-24 (0), Mental Status altered: no (0). (16:04 GHIA) TRIAGE SCREENING: Patient denies suicidal ideation, Patient denies presence of domestic violence. (16:04 GHIA) LMP: LMP: Menopause. (16:04 GHIA) TREATMENTS IN PROGRESS: Treatments given Prehospital: pt took morning meds only; no pain med today. (16:04 GHIA) PROVIDERS: TRIAGE NURSE: Vikki Becerra RN. (WedJul 13, 2016 16:00 GHIA) PREVIOUS VISIT ALLERGIES: No Known Drug Allergies. (WedJul 13, 2016 16:00 GHIA) No Known Drug Allergies. (16:04 GHIA) KNOWN ALLERGIES No Known Allergies (Unconfirmed) No Known Drug Allergies CURRENT MEDICATIONS No recorded medications VITAL SIGNS VITAL SIGNS: BP: 133/76, Pulse: 73, Resp: 17, Temp: 99.1 (Oral), Pain: 8, O2 sat: 100, Time: 07/13/2016 16:07. (16:07 [facility]) BP: 147/87, Pulse: 67, O2 sat: 99 on Room Air, Time: 07/13/2016 17:30. (17:[address] [facility]) BP: 157/79, Pulse: 76, Resp: 18, Temp: 98.1 (Axillary), O2 sat: 99 on Room Air, Time: 07/13/2016 21:15. (21:[address] [facility]) BP: 157/76, Pulse: 69, Resp: 18, O2 sat: 99 on Room Air, Time: 07/13/2016 19:00. (19:[address] [facility]) Pain: 0, Time: 07/13/2016 21:21. (21:[address] [facility]) &a-1R&a+25V*p+0X*s6502T*c202B*c15G*c2P*p-0X&a-25V&a+1R Name: Dionne Wise : 1940 F75 MedRec: [id number] AcctNum: [id number] Prepared: WedJul 13, 2016 21:49 by Interface Page 1 of 11 pMD [facility] EMERGENCY RECORD NURSING ASSESSMENT: FALL RISK (21:[address] [facility]) FALL RISK: Fall risk assessment findings include: no history of falls (0), Total score 0, No risk for fall. NURSING ASSESSMENT: HEAD-TO-TOE (16:04 [facility]) CONSTITUTIONAL: Patient arrives ambulatory, Gait steady, History obtained from patient, Patient appears comfortable, Patient cooperative, Patient alert, Oriented to person, place and time, Skin warm, Skin dry, Skin normal in color, Mucous membranes pink, Mucous membranes moist, Patient is well-groomed, Patient complains of RUQ abd pain, Pt in room in bed in gown. Assess. Plan of care of pt in ER discussed. PAIN: aching pain, RUQ abd pain, Onset of pain 3 days ago, constant, on a scale 0-10 patient rates pain as 9. SKIN: Skin assessment findings include skin warm, Skin dry, Skin normal in color, Notes: intact. RESPIRATORY/CHEST: Respiratory assessment findings include respiratory effort easy. CARDIOVASCULAR: Cardiovascular assessment findings include heart rate normal. ABDOMEN: Abdomen assessment findings include abdomen symmetrical, Associated with nausea, Associated with vomiting, history of vomiting, Number of times: x 1 in 24 hours, no associated diarrhea, Associated with constipation, Date of last bowel movement: x 3 in 24 hours. GENITOURINARY FEMALE: no associated urinary complaints. NOTES: Emotional support needed and given, Patient tolerated procedure well. SAFETY: Side rails up, Cart/Stretcher in lowest position, Family at bedside, Call light within reach, Hospital ID band on. NURSING ASSESSMENT: SKIN (21:[address] [facility]) SKIN: Skin assessment findings include skin warm, Skin dry, Skin normal in color, Inspection findings include: No pressure ulcer to the shoulder, Inspection findings include no pressure ulcer to the elbow, Inspection findings include no pressure ulcers to the hip, Inspection findings include no pressure ulcer to the sacrum, Inspection findings include no pressure ulcer to the heel, Inspection findings include no pressure ulcer, Inspection findings include no pressure ulcer. NURSING PROCEDURE: BEDSIDE SIRS TESTING (21:[address] [facility]) SCORES: Heart Rate 55-109 (0), Temp range 96.8-101.1 (0), respiratory rate 12-24 (0), Mental Status altered: no (0). NURSING PROCEDURE: IV (17:30 GHIA) PATIENT IDENITIFIER: Patient actively involved in identification process, Patient's identity verified by patient stating name, &a-1R&a+25V*p+0X*g5861N*c202B*c15G*c2P*p-0X&a-25V&a+1R Name: Dionne Wise : 1940 F75 MedRec: [id number] AcctNum: [id number] Prepared: WedJul 13, 2016 21:49 by Interface Page 2 of 11 pMD [facility] EMERGENCY RECORD Patient's identity verified by hospital ID bracelet. IV SITE 1: IV therapy indicated for medication administration, IV established, to the right hand, using an 18 gauge catheter, in one attempt, IV site prepped with chloraprep, Labs drawn at time of placement, labeled in the presence of the patient and sent to lab. FOLLOW-UP SITE 1: After procedure, 2x3 ensure dressing applied, After procedure, no swelling at IV site, After procedure, no redness at IV site. NOTES: Emotional support needed and given, Patient tolerated procedure well. SAFETY: Side rails up, Cart/Stretcher in lowest position, Family at bedside, Call light within reach, Hospital ID band on. NURSING PROCEDURE: LAB DRAW PATIENT IDENTIFIER: Patient actively involved in identification process, Patient's identity verified by patient stating name, Patient's identity verified by patient stating date, Patient's identity verified by hospital ID bracelet. (21:[address] [facility]) LAB DRAW: Lab draw indicated for obtaining specimens for evaluation, Lab draw indicated for 2nd set of Blood Cultures, Initial lab draw performed, by venipuncture, from left antecubital, in one attempt, Blood cultures labeled in the presence of the patient and sent to lab. (21:[address] [facility]) Lab draw indicated for obtaining specimens for evaluation, Subsequent lab draw performed, from vascular access device, existing IV site, SITE #1- RIGHT HAND, Blood cultures labeled in the presence of the patient and sent to lab, 10 ML WASTED PRIOR TO DRAWING SAMPLE. (20:55 LK) FOLLOW-UP: After procedure, dressing applied to site, After procedure, no swelling at site, After procedure, no active bleeding from site. (21:00 LK) NURSING PROCEDURE: NURSE NOTES NURSES NOTES: Patient in no apparent distress, Assistance offered to patient, Patient is awaiting results. (16:25 GHIA) Patient assisted to bathroom with steady gait. (16:50 GHIA) Notes: Per VOV hold rocephin until lab results back as BC may be needed. (17:41 GHIA) Notes: Continue to hold antibx until after CT per VOv Dr Dias. Pt alert and tolerating PO contrast well. (18:43 GHIA) Shift change report given, to to Jailene Golden, Provided opportunity to answer questions, with emphasis on rocephin on hold until after CT. (19:02 GHIA) Notes: SANDWICH BOX AND GLASS OF WATER GIVEN TO PATIENT. (21:10 LK) NURSING PROCEDURE: TRANSFER (21:32 LK) TRANSFER: Reason for transfer, IV ANTIBIOTICS NEEDED, Diagnosis: PYLONEPHRITIS, Accepting institution: [facility] ER, Accepting physician: MD SHERITA, Referring physician: MD ARUN, Transported by &a-1R&a+25V*p+0X*i7809W*c202B*c15G*c2P*p-0X&a-25V&a+1R Name: Dionne Wise : 1940 F75 MedRec: [id number] AcctNum: [id number] Prepared: WedJul 13, 2016 21:49 by Interface Page 3 of 11 pMD [facility] EMERGENCY RECORD non-urgent ambulance, accompanied by emergency medical services personnel, Report called to receiving facility, [facility], Provided opportunity to answer questions, Summary of Care printed, Copy of patient record prepared for receiving facility, Patient consent for transfer signed, Family member contacted, SISTER AT BEDSIDE. BELONGINGS: Belongings and valuables with patient upon arrival to the Emergency Department include:, Belongings and valuables with patient at time of discharge include:, Belongings remain with patient, Valuables remain with patient. EQUIPMENT WITH PATIENT: Equipment with patient at time of transfer IV pump. NURSING PROCEDURE: TRANSPORT TO TESTS TRANSPORT TO TESTS: Transport indicated to facilitate diagnosis, Patient transported to CT scan, via wheelchair, Accompanied by x-ray cytogenetic technician. (19:[address] [facility]) FOLLOW-UP: After procedure, patient returned to emergency department. (20:[address] [facility]) ORDER DETAILS Order Name: CBC with Differential, Status: Active, Time: 16:45 07/13/2016, User: THEA, - Ordered for: MD Dias Joshua, - Entered by: MD Dias Joshua - WedJul 13, 2016 16:45, - Quantity: 1, Order Name: Comprehensive Metabolic Panel, Status: Active, Time: 16:45 07/13/2016, User: THEA, - Ordered for: MD Dias Joshua, - Entered by: MD Dias Joshua - WedJul 13, 2016 16:45, - Quantity: 1, Order Name: CT Abdomen Pelvis W Con, Status: Active, Time: 18:11 07/13/2016, User: THEA, - Ordered for: MD Dias Joshua, - Entered by: MD Dias Joshua - WedJul 13, 2016 18:11, - Quantity: 1, Order Name: Culture, Blood, Status: Active, Time: 20:42 07/13/2016, User: THEA, - Ordered for: MD Dias Joshua, - Entered by: MD Dias Joshua - [facility] Jul 13, 2016 20:42, - Quantity: 1, Order Name: Culture, Urine, Status: Active, Time: 20:50 07/13/2016, User: THEA, - Ordered for: MD Dias Joshua, - Entered by: MD Dias Joshua - Ynes Jul 13, 2016 20:50, - Quantity: 1, Order Name: Lactic Acid with repeat, Status: Active, Time: 16:45 07/13/2016, User: THEA, - Ordered for: MD Dias Joshua, &a-1R&a+25V*p+0X*n7242X*c202B*c15G*c2P*p-0X&a-25V&a+1R Name: Dionne Wise : 1940 F75 MedRec: [id number] AcctNum: [id number] Prepared: WedJul 13, 2016 21:49 by Interface Page 4 of 11 [facility] EMERGENCY RECORD - Entered by: MD Dias Joshua - [facility] Jul 13, 2016 16:45, - Quantity: 1, Order Name: SALINE LOCK, Status: Done, Time: 17:39 07/13/2016, User: GABI, - Ordered for: MD Dias Joshua, - Entered by: MD Dias Joshua - [facility] Jul 13, 2016 16:45, - Quantity: 1, Order Name: Urinalysis w/ Rflx Microscopic, Status: Active, Time: 16:45 07/13/2016, User: THEA, - Ordered for: MD Dias Joshua, - Entered by: MD Dias Joshua - [facility] Jul 13, 2016 16:45, - Quantity: 1. MEDICATION ADMINISTRATION SUMMARY Drug Name: ondansetron HCl intravenous, Dose Ordered: 4 mg, Route: IV Push, Status: Given, Time: 20:57 07/13/2016, Drug Name: morphine injection, Dose Ordered: 4 mg, Route: IV Push, Status: Given, Time: 20:57 07/13/2016, Drug Name: cefTRIAXone injection, Dose Ordered: 1 g, Route: IV Piggy Back, Status: Given, Time: 20:34 07/13/2016, Detailed record available in Medication Service section. MEDICATION SERVICE cefTRIAXone injection: Order: cefTRIAXone injection (ceftriaxone sodium) - Dose: 1 g : IV Piggy Back Ordered by: Moise Dias MD Entered by: Moise Dias MD WedJul 13, 2016 17:15 , Acknowledged by: Vikki Becerra RN WedJul 13, 2016 17:40, Held by: Moise Dias MD WedJul 13, 2016 17:55 Reason: Ordering Physician ordered to hold:Attending physician aware Documented as given by: Moise Dias MD WedJul 13, 2016 20:34 Patient, Medication, Dose, Route and Time verified prior to administration. : Follow Up : ACTUAL MED START TIME: 21:05, AFTER BLOOD CULTURES WERE DRAWN. (21:[address] [facility]) : Follow Up : No signs or symptoms of allergic reaction noted, _IV SITE #1:_, Medication infusion continued upon transfer from emergency department, on WedJul 13, 2016 21:32, ., Total amount infused: 80ML. (21:[address] [facility]) morphine injection: Order: morphine injection (morphine sulfate) - Dose: 4 mg : IV Push Ordered by: Moise Dias MD Entered by: Moise Dias MD WedJul 13, 2016 20:44 , Acknowledged by: Evelyn Bettencourt RN WedJul 13, 2016 20:59 Documented as given by: Jailene Mendez RN WedJul 13, 2016 20:57 Patient, Medication, Dose, Route and Time verified prior to administration. Amount given: 4MG, IV SITE #1 IVP, initial medication, Slowly, Awake and alert- acceptable, Catheter placement confirmed via flush prior &a-1R&a+25V*p+0X*o0442C*c202B*c15G*c2P*p-0X&a-25V&a+1R Name: Dionne Wise : 1940 F75 MedRec: [id number] AcctNum: [id number] Prepared: WedJul 13, 2016 21:49 by Interface Page 5 of 11 pMD [facility] EMERGENCY RECORD to administration, IV site without signs or symptoms of infiltration during medication administration, No swelling during administration, No drainage during administration, IV flushed after administration, Correct patient, time, route, dose and medication confirmed prior to administration, Patient advised of actions and side-effects prior to administration, Allergies confirmed and medications reviewed prior to administration. : Follow Up : No signs or symptoms of allergic reaction noted, Decreased pain, _IV SITE #1:_. (21:[address] [facility]) ondansetron HCl intravenous: Order: ondansetron HCl intravenous (ondansetron HCl) - Dose: 4 mg : IV Push Ordered by: Moise Dias MD Entered by: Moise Dias MD WedJul 13, 2016 20:44 , Acknowledged by: Evelyn Bettencourt RN WedJul 13, 2016 20:59 Documented as given by: Jailene Mendez RN WedJul 13, 2016 20:57 Patient, Medication, Dose, Route and Time verified prior to administration. Amount given: 4MG, IV SITE #1 IVP, initial medication, Slowly, Awake and alert- acceptable, Catheter placement confirmed via flush prior to administration, IV site without signs or symptoms of infiltration during medication administration, No swelling during administration, No drainage during administration, IV flushed after administration, Correct patient, time, route, dose and medication confirmed prior to administration, Patient advised of actions and side-effects prior to administration, Allergies confirmed and medications reviewed prior to administration. : Follow Up : No signs or symptoms of allergic reaction noted, _IV SITE #1:_. (:[address] [facility]) HPI ABDOMINAL PAIN (17:[address] [facility]) CHIEF COMPLAINTS: Patient presents for evaluation of abdominal pain, Patient presents for evaluation of Pt seen 1 week ago for UTI that was not improving on bactrim. Also for cough and fevers. Put on cipro. Pt reports cough mildly improved and only at night now. Fevers have persisted and she had a 102 fever last night. Pt also now with a few days of RUQ abd pain and right low back pain. Urinary symptoms have improved but urine smells 'bad'. HISTORIAN: History provided by patient. LOCATION FEMALE: Symptoms are localized, most severe in the right upper quadrant. QUALITY: Pain is dull in nature. TIME COURSE: Patient unable to describe onset of symptoms, Symptoms are constant. ASSOCIATED WITH FEMALE: Associated with chills, No associated constipation, No associated diarrhea, Associated with fever, No associated hematemesis, No associated hematuria, No associated nausea, No associated inability to tolerate oral intake, Associated with urinary tract infection signs or symptoms, dysuria, frequency, urine odor, No associated vomiting. RELIEVED BY: Patient's condition relieved by nothing. &a-1R&a+25V*p+0X*s3792Q*c202B*c15G*c2P*p-0X&a-25V&a+1R Name: Dionne Wise : 1940 F75 MedRec: [id number] AcctNum: [id number] Prepared: WedJul 13, 2016 21:49 by Interface Page 6 of 11 pMD [facility] EMERGENCY RECORD EXACERBATED BY: Patient's condition exacerbated by nothing. ROS (17:[address] [facility]) CONSTITUTIONAL: Historian reports chills, reports fever. ENT: Historian denies rhinorrhea, denies sore throat. CARDIOVASCULAR: Historian denies chest pain. RESPIRATORY: Historian reports cough, denies shortness of breath. GI: Historian reports abdominal pain, denies constipation, denies diarrhea, denies nausea, denies vomiting. GENITOURINARY FEMALE: Historian reports dysuria, reports frequency. MUSCULOSKELETAL: Historian reports back pain. SKIN: Historian denies rash, denies skin changes. NEUROLOGIC: Historian denies dizziness, denies headache. PAST MEDICAL HISTORY MEDICAL HISTORY: Notes: as lsited, Notes: as listed plus, Past medical history includes history of diabetes, Pill only, Past medical history includes endocrine disease, hypothyroidism,includes gastrointestinal disease, gastroesophageal reflux disease,history of hyperlipidemia, high cholesterol,history of hypertension,pulmonary disease, pneumonia. includes gastrointestinal disease, lower gastrointestinal bleed. (16:04 GHIA) FEMALE SURGICAL HISTORY: as lsited, as listed, Surgical history of cholecystectomy, Surgical history of hysterectomy. (16:04 GHIA) PSYCHIATRIC HISTORY: Psychiatric history includes, anxiety, Notes: as lsited, Psychiatric history includes, anxiety. (16:04 GHIA) SOCIAL HISTORY: Social History includes lives alone, Patient drinks socially, rarely, Patient denies drug use, Patient currently uses tobacco, smokes cigarettes, Occasional or some day smoker, Social History includes lives alone, Patient denies alcohol use, Patient denies drug use, Patient currently uses tobacco, smokes cigarettes, Occasional or some day smoker. (16:04 GHIA) NOTES: Nursing records reviewed, Agree with nursing records. (17:26 [facility]) PHYSICAL EXAM (17:24 [facility]) CONSTITUTIONAL: Vital Signs Reviewed. EYES: Eye exam included findings of eyelids normal to inspection, Pupils equally round and reactive to light, Conjunctiva normal. ENT: Pharynx exam normal, Uvula exam normal, Tonsil exam normal, Mouth exam normal, mucous membranes moist. NECK: Neck exam included findings of normal range of motion, Trachea midline. RESPIRATORY CHEST: Respiratory exam included findings of no &a-1R&a+25V*p+0X*i6389N*c202B*c15G*c2P*p-0X&a-25V&a+1R Name: Dionne Wise : 1940 F75 MedRec: [id number] AcctNum: [id number] Prepared: WedJul 13, 2016 21:49 by Interface Page 7 of 11 pMD [facility] EMERGENCY RECORD respiratory distress, Breath sounds clear, No wheezing, No rales, No rhonchi. CARDIOVASCULAR: Cardiovascular exam included findings of heart rate regular rate and rhythm, Heart sounds normal. ABDOMEN FEMALE: Abdominal exam included findings of abdomen tender, to the right upper quadrant, moderate intensity, Bowel sounds normal, Liver normal, Spleen normal, no distension, no peritoneal signs, no rigidity, no guarding, no rebound. BACK: Back exam included findings of normal inspection, range of motion normal, Tenderness, paraspinal to the right lower. UPPER EXTREMITY: Upper extremity exam included findings of inspection normal, Radial pulse normal, no cyanosis, no clubbing, no edema. LOWER EXTREMITY: Lower extremity exam included findings of inspection normal, no edema, no calf tenderness. NEURO: Laura coma scale 15, Neuro exam findings include patient oriented to person, place and time, Speech normal. SKIN: Skin exam included findings of skin warm, dry, and normal in color, no rash. PSYCHIATRIC: Normal affect. EVENTS TRANSFER: Triage to Emergency Triage. (WedJul 13, 2016 16:00 GHIA) Emergency Triage to Emergency Room -03. (16:01 GHIA) Removed from Emergency Emergency Room -03. (21:[address] [facility]) DOCTOR NOTES (20:50 JL) TEXT: Dr. Hubbard accepted the transfer to [facility] ER. PROBLEM LIST No recorded problems DIAGNOSIS (20:58 JL) FINAL: PRIMARY: UTI, ADDITIONAL: DISORDER KIDNEY AND URETER UNS. DISPOSITION PATIENT: Disposition Type: Transfer, Disposition: Transfer to [facility]. (20:58 JL) Patient left the department. (21:[address] [facility]) PRESCRIPTION No recorded prescriptions IMAGING *MEMORANDUM OF TRANSFER: Image captured from scanner. (21:10 [facility]) &a-1R&a+25V*p+0X*w0375W*c202B*c15G*c2P*p-0X&a-25V&a+1R Name: Dionne Wise : 1940 F75 MedRec: [id number] AcctNum: [id number] Prepared: WedJul 13, 2016 21:49 by Interface Page 8 of 11 [facility] EMERGENCY RECORD CONSENTS: Image captured from scanner. (21:10 [facility]) *SUPPLY CHARGE SHEET: Image captured from scanner. (21:[address] [facility]) ADMIN (20:58 [facility]) DIGITAL SIGNATURE: MD Arun, Moise. RESULTS RADIOLOGY: CT Abdomen Pelvis W Con Observe DT: WedJul 13, 2016 18:12, ABDPELV CT ABDOMEN AND PELVIS WITH IV AND ORAL CONTRAST: History: Abdominal pain. Comparison: 06-20-14 FINDINGS: Calcified granulomata at the lung bases are consistent with healed granulomatous disease. The gallb ladder is surgically absent. Fusiform ectasia of the abdominal aorta and prominent arterial calcifi cation is again demonstrated. Scattered diverticula arise from the colon without adjacent inflammation apparent. Urinary bladder is incompletely distended. Adenoma associated with the right adrenal gland is stable. There are subtle irregular shaped areas of decreased perfusion involving the anterior midportion of the right kidney and the lateral portion of the left kidney. No hydronephrosis is apparent. No urinary tract calcifications are visible. IMPRESSION: 1. Subtle heterogeneous contrast enhancement of each kidney as detailed above, possibly related to inflammation. Clinical correlation regarding other signs and symptoms of unilateral versus bilatera l nephritis is required. 2. Status post cholecystectomy. 3. Diverticulosis. No evidence of diverticulitis. 4. Atherosclerosis. POS: [facility] . (21:[address] [facility]) LABORATORY: Comprehensive Metabolic Panel Collection DT: WedJul 13, 2016 17:36, Sodium 141 mmol/L, Range (136-145), Potassium 4.0 mmol/L, Range (3.5-5.1), &a-1R&a+25V*p+0X*i7276W*c202B*c15G*c2P*p-0X&a-25V&a+1R Name: Dionne Wise : 1940 F75 MedRec: [id number] AcctNum: [id number] Prepared: WedJul 13, 2016 21:49 by Interface Page 9 of 11 pMD [facility] EMERGENCY RECORD Chloride 107 mmol/L, Range (98-107), *Carbon Dioxide 22 - L mmol/L, Range (23-31), Anion Gap 16 mmol/L, Range (10-20), BUN (Urea Nitrogen) 14 mg/dL, Range (9.8-20.1), Creatinine 1.01 mg/dL, Range (0.6-1.1), Estimated GFR-MDRD 54 , Reference Range for Estimated GFR: Greater than 90, mL/min/1.73 m2 NOTE: The MDRD equation has not been validated for use, with the elderly (over 70 years of age), women, patients with, serious comorbid condition or persons with extremes of body size, muscle, mass, or nutritional status. , *Glucose 128 - H mg/dL, Range (83-110), Calcium 9.8 mg/dL, Range (7.8-10.44), Bilirubin, Total 0.4 mg/dL, Range (0.2-1.2), Protein, Total 7.5 g/dL, Range (5.8-8.1), NOTE: Plasma values are generally 0.3 to 0.5 g/dL higher than serum values, due to the presence of fibrinogen. , Albumin 4.0 g/dL, Range (3.4-4.8), Globulin 3.5 g/dL, Range (2.4-3.5), *Alb/Glob Ratio 1.1 - L g/dL, Range (1.2-2.2), Alkaline Phosphatase 99 U/L, Range (40-150), AST (SGOT) 14 U/L, Range (5-34), ALT (SGPT) 11 U/L, Range (0-55). (18:05 [facility]) Lactic Acid for Sepsis Collection DT: WedJul 13, 2016 17:36, Lactic Acid - Sepsis 1.2 mmol/L, Range (0.5-2.2). (18:[address] [facility]) CBC with Differential Collection DT: WedJul 13, 2016 17:36, White Blood Cell (WBC) Count 5.8 thou/uL, Range (4.8-10.8), *Red Blood Cell (RBC) Count 3.53 - L mill/uL, Range (4.20-5.40), *Hemoglobin 10.5 - L g/dL, Range (12.0-16.0), *Hematocrit 31.7 - L %, Range (36.0-47.0), Mean Corpuscular Volume 89.9 fl, Range (81.0-99.0), Mean Corpuscular Hemoglobin 29.9 pg, Range (27.0-31.0), Mean Corpuscular HGB CONC 33.2 g/dL, Range (32.0-36.0), RBC Distribution Width 13.0 %, Range (11.5-14.5), Platelet Count 213 thou/uL, Range (130-400), Mean Platelet Volume 7.5 fL, Range (7.4-10.4), %Neutrophils 46.7 %, Range (42.0-75.0), %Lymphocytes 40.5 %, Range (21.0-51.0), %Monocytes 7.7 %, Range (0.0-10.0), %Eosinophils 3.9 %, Range (0.0-10.0), *%Basophils 1.2 - H %, Range (0.0-1.0), #Neutrophils 2.7 thou/uL, Range (1.40-6.50), #Lymphocytes 2.4 thou/uL, Range (1.20-3.40), #Monocytes 0.5 thou/uL, Range (0.11-0.59), #Eosinphils 0.2 thou/uL, Range (0.0-0.7), #Basophils 0.1 thou/uL, Range (0.0-0.2). (18:[address] [facility]) Urine Microscopic Collection DT: WedJul 13, 2016 18:20, &a-1R&a+25V*p+0X*[id number]*c202B*c15G*c2P*p-0X&a-25V&a+1R Name: Dionne Wise : 1940 F75 MedRec: [id number] AcctNum: [id number] Prepared: WedJul 13, 2016 21:49 by Interface Page 10 of 11 pMD [facility] EMERGENCY RECORD RBC/HPF 0-3 HPF, Range (0-3), *WBC/HPF 21-50 - H HPF, Range (0-3), Squamous Epithelial 0-3 HPF, Range (0-3), *Bacteria/HPF 3+ - H HPF, Range (None Seen). (20:[address] [facility]) Urinalysis w/ Rflx Microscopic Collection DT: WedJul 13, 2016 18:20, Color Yellow , Range (Yellow), Clarity SL HAZY , Range (Clear), Specific [place], Urine 1.015 , Range (1.005-1.030), pH, Urine 6.0 , Range (5.0-9.0), *Leukocyte Small - H , Range (Negative), Nitrite Negative , Range (Negative), Protein, Urine (Dipstick) Trace mg/dL, Range (Neg-Trace), Glucose, Urine (Dipstick) Negative mg/dL, Range (Negative), *Ketone, Urine Trace - H mg/dL, Range (Negative), Urobilinogen 1.0 mg/dL, Range (0.2-1.0), Bilirubin Negative , Range (Negative), Blood, Urine Negative , Range (Negative). (20:[address] [facility]) Trejo: GABI=RANI Becerra, Vikki CORREA=MD Arun, Moise THOMASON=JIHAN Che Kayce [facility]=RANI Mendez, Jailene PAEZ=RANI Bettencourt, Evelyn &a-1R&a+25V*p+0X*[id number]*c202B*c15G*c2P*p-0X&a-25V&a+1R Name: Dionne Wise : 1940 F75 MedRec: [id number] AcctNum: [id number] Prepared: WedJul 13, 2016 21:49 by Interface Page 11 of 11 pMD MTDD
== END 2016-07-13 21:32 | disposition short-term general hospital (02) ==
LOC: NAV ERS 15:51
DX: N39.0 Urinary tract infection, site not specified (principal); N28.9 Disorder of kidney and ureter, unspecified; E11.9 Type 2 diabetes mellitus without complications; E03.9 Hypothyroidism, unspecified; K21.9 Gastro-esophageal reflux disease without esophagitis; I10 Essential (primary) hypertension; F41.9 Anxiety disorder, unspecified; Z87.01 Personal history of pneumonia (recurrent)
CPT/HCPCS: 74177; 80053; 81003; 81015; 83605; 85025; 87040; 87077; 87086; 87186; 96365; 96375; J0696; J2270; J2405

== ENCOUNTER 2016-12-10 09:46 | Outpatient (CLI) | payer MEDICARE, MEDICAID | END 2016-12-10 09:47 | disposition home or self-care (01) | LOC: NAV LABSP 09:46 | PROVIDERS: ATTEND Family Medicine | DX: R19.7 Diarrhea, unspecified (principal); R10.11 Right upper quadrant pain | CPT/HCPCS: 87015; 87045; 87046; 87449; 87899 ==

== ENCOUNTER 2017-01-04 07:17 | Outpatient (CLI) | payer MEDICARE, OTHER ==
--- NOTE | 2017-01-04 09:31 | ULT ---
ABDOMINAL SONOGRAM: HISTORY: Upper abdomen pain. FINDINGS: Gallbladder is surgically absent. The common duct is 0.7 cm diameter. Liver is diffusely echogenic without focal mass or intrahepatic biliary dilatation. No free fluid is evident. Small cyst arise s from the lateral cortex of the right kidney. The spleen, left kidney, and visualized portions of the abdominal aorta, IVC, and pancreas have a normal sonographic appearance. IMPRESSION: 1. Status post cholecystectomy. No evidence of biliary obstruction. 2. Hepatosteatosis. POS: [facility]
== END 2017-01-04 07:18 | disposition home or self-care (01) ==
LOC: NAV ULT 07:17
PROVIDERS: ATTEND Internal Medicine Gastroenterology
DX: R10.9 Unspecified abdominal pain (principal); K76.0 Fatty (change of) liver, not elsewhere classified; Z90.49 Acquired absence of other specified parts of digestive tract
CPT/HCPCS: 76700

== ENCOUNTER 2017-01-15 19:46 | Emergency (ER) | payer MEDICARE, OTHER ==
[2017-01-15 20:19] LABS: #Basophils 0.1 thou/uL (0.0-0.2); #Eosinphils 0.4 thou/uL (0.0-0.7); #Lymphocytes 2.1 thou/uL (1.20-3.40); #Monocytes 0.6 thou/uL (0.11-0.59); #Neutrophils 4.3 thou/uL (1.40-6.50); %Basophils 1.1 % (0.0-1.0); %Eosinophils 4.8 % (0.0-10.0); %Lymphocytes 28.7 % (21.0-51.0); %Monocytes 7.5 % (0.0-10.0); Hemoglobin 9.5 g/dL (12.0-16.0); Mean Corpuscular HGB CONC 33.4 g/dL (32.0-36.0); Mean Corpuscular Hemoglobin 29.9 pg (27.0-31.0); Mean Corpuscular Volume 89.5 fl (81.0-99.0); Mean Platelet Volume 8.8 fL (7.4-10.4); Platelet Count 154 thou/uL (130-400); RBC Distribution Width 12.9 % (11.5-14.5); Red Blood Cell (RBC) Count 3.18 mill/uL (4.20-5.40); White Blood Cell (WBC) Count 7.4 thou/uL (4.8-10.8)
[2017-01-15 20:22] LABS: Prothrombin Time 12.9 SEC (12.0-14.7)
[2017-01-15] MEDS ORDERED: Sodium Chloride 0.9% 1,000 ML ONE (20:31)
[2017-01-15] MEDS ORDERED: Aspirin 325 MG TAB ONE (20:31)
[2017-01-15 20:32] LABS: ALT (SGPT) 18 U/L (8-55); AST (SGOT) 17 U/L (5-34); Albumin 4.4 g/dL (3.4-4.8); Alkaline Phosphatase 88 U/L (40-150); Anion Gap 16 mmol/L (10-20); BUN (Urea Nitrogen) 14 mg/dL (9.8-20.1); Bilirubin, Total 0.3 mg/dL (0.2-1.2); Calc. Creatinine Clearance 0 mL/min (70-130); Calcium 9.5 mg/dL (7.8-10.44); Carbon Dioxide 24 mmol/L (23-31); Chloride 104 mmol/L (98-107); Estimated GFR-MDRD 38; Globulin 2.6 g/dL (2.4-3.5); Glucose 169 mg/dL (83-110); Sodium 140 mmol/L (136-145)
--- NOTE | 2017-01-15 20:34 | CT ---
CT HEAD NONCONTRAST 01/15/17 CLINICAL HISTORY: Difficulty speaking, stroke protocol. There is no acute intracranial hemorrhage, mass effect, midline shift or ventriculomegaly. Mild muc osal thickening of the paranasal sinuses. Scattered mild white matter hypoattenuating foci indicate mild chronic microvascular ischemic disease. IMPRESSION: No acute intracranial hemorrhage or mass effect. A telephone call placed to ER physician, Konstantin Ward at 2025 hours, 01/15/17. Code CR. POS: [facility]
[2017-01-15 20:36] LABS: CKMB 0.8 ng/mL (0-6.6); Troponin I Less than 0.010 ng/mL (< 0.028)
[2017-01-15] MEDS ORDERED: Ondansetron HCl/PF 4 MG/2 ML Vial ONE (20:40)
--- NOTE | 2017-01-15 20:51 | RAD ---
CHEST ONE VIEW 01/15/17 HISTORY: Trouble speaking. COMPARISON: Chest two view 07/14/16. FINDINGS: Mild blunting left lateral costophrenic sulcus. Cardiac silhouette and mediastinal contours are selma lar. No pneumothorax. Right lung is clear. IMPRESSION: Mild blunting left lateral costophrenic sulcus may be sequela of chronic pleural and parenchymal marie nges. Small effusion cannot be excluded. POS: [facility]
[2017-01-15] MEDS ORDERED: Lidocaine 1% w/Epinephrine 1:100K 20 ML VIAL ONE (21:08)
== END 2017-01-15 21:20 | disposition short-term general hospital (02) ==
LOC: NAV ERS 19:46
DX: I63.9 Cerebral infarction, unspecified (principal); D64.9 Anemia, unspecified; I25.10 Atherosclerotic heart disease of native coronary artery without angina pectoris; E11.9 Type 2 diabetes mellitus without complications; E03.9 Hypothyroidism, unspecified; K21.9 Gastro-esophageal reflux disease without esophagitis; E78.5 Hyperlipidemia, unspecified; I10 Essential (primary) hypertension; F41.9 Anxiety disorder, unspecified; Z87.891 Personal history of nicotine dependence; Z79.899 Other long term (current) drug therapy; Z79.84 Long term (current) use of oral hypoglycemic drugs
CPT/HCPCS: 36415; 36416; 70450; 71010; 80053; 82553; 84484; 85025; 85610; 85730; 93005; 94760; 96361; 96374; J2001; J2405; J7050

== ENCOUNTER 2017-10-23 19:31 | Emergency (ER) | payer MEDICARE, OTHER | END 2017-10-23 20:10 | disposition home or self-care (01) | LOC: NAV ERS 19:31 | DX: J04.0 Acute laryngitis (principal); J06.9 Acute upper respiratory infection, unspecified; I25.10 Atherosclerotic heart disease of native coronary artery without angina pectoris; E11.9 Type 2 diabetes mellitus without complications; E03.9 Hypothyroidism, unspecified; K21.9 Gastro-esophageal reflux disease without esophagitis; E78.5 Hyperlipidemia, unspecified; I10 Essential (primary) hypertension; F41.9 Anxiety disorder, unspecified; F17.210 Nicotine dependence, cigarettes, uncomplicated; Z79.899 Other long term (current) drug therapy; Z79.84 Long term (current) use of oral hypoglycemic drugs | CPT/HCPCS: 99283 ==

== ENCOUNTER 2018-07-14 14:13 | Outpatient (CLI) | payer MEDICARE, OTHER ==
--- NOTE | 2018-07-14 15:44 | RAD ---
CERVICAL SPINE RADIOGRAPH 4 VIEWS: INDICATION: Neck pain. FINDINGS: There is slight translation of C3 on C4. There is moderate multilevel degenerative disk disease most pronounced at C5-6 and C6-7. Atlantoaxial distance is within normal limits. Prevertebral soft tiss ues are normal appearing. There is an endograft stent within the region of the right internal caroti d. There is prominent calcification involving the left carotid bulb. Lung apices are clear. Latera l masses are symmetric. IMPRESSION: Moderate spondylosis of the cervical spine. POS: [facility]
== END 2018-07-14 14:14 | disposition home or self-care (01) ==
LOC: NAV RAD 14:13
PROVIDERS: ATTEND Family Medicine
DX: M54.2 Cervicalgia (principal); M47.812 Spondylosis without myelopathy or radiculopathy, cervical region
CPT/HCPCS: 72040

== ENCOUNTER 2018-09-06 11:30 | Outpatient (CLI) | payer MEDICARE, MEDICAID ==
--- NOTE | 2018-09-06 12:04 | RAD ---
F7 view cervical spine. HISTORY: Neck pain, M43.12 AP, lateral, flexion, extension, right and left oblique and open-mouth odontoid views obtained. There is a right carotid endovascular stent in place. Right C3-4, C4-5 and C5-6 moderate neural foraminal narrowing is seen due to osteophyte encroachment. Disc space height loss with extensive anterior osteophytes compatible with spondylosis seen at C4-5, C5-6 and C6-7. Grade 1 anterolisthesis of C3 on C4 is seen on flexion views. IMPRESSION: Mid cervical changes of spondylosis.
== END 2018-09-06 11:31 | disposition home or self-care (01) ==
LOC: NAV RAD 11:30
PROVIDERS: ATTEND Anesthesiology Pain Medicine
DX: M43.12 Spondylolisthesis, cervical region (principal); M47.812 Spondylosis without myelopathy or radiculopathy, cervical region
CPT/HCPCS: 72052

== ENCOUNTER 2018-09-13 22:07 | Emergency (ER) | payer MEDICARE, MEDICAID ==
[2018-09-13] MEDS ORDERED: Sodium Chloride 0.9% 1,000 ML ONE (22:54)
[2018-09-13] MEDS ORDERED: Morphine 4 MG/ML VIAL ONE (22:54)
[2018-09-13] MEDS ORDERED: Ondansetron PF 4 MG/2 ML Vial ONE (22:54)
[2018-09-13 22:56] LABS: #Basophils 0.1 thou/uL (0.0-0.2); #Eosinphils 0.3 thou/uL (0.0-0.7); #Lymphocytes 2.5 thou/uL (1.20-3.40); #Monocytes 0.6 thou/uL (0.11-0.59); #Neutrophils 5.2 thou/uL (1.40-6.50); %Basophils 0.9 % (0.0-1.0); %Eosinophils 3.6 % (0.0-10.0); %Lymphocytes 29.1 % (21.0-51.0); %Monocytes 6.8 % (0.0-10.0); %Neutrophils 59.7 % (42.0-75.0); Hemoglobin 10.4 g/dL (12.0-16.0); Mean Corpuscular HGB CONC 32.1 g/dL (32.0-36.0); Mean Corpuscular Hemoglobin 28.9 pg (27.0-31.0); Mean Platelet Volume 7.6 fL (7.4-10.4); Platelet Count 193 thou/uL (130-400); RBC Distribution Width 13.4 % (11.5-14.5); White Blood Cell (WBC) Count 8.7 thou/uL (4.8-10.8)
[2018-09-13] MEDS ORDERED: Ketorolac Tromethamine 30 MG/ML VIAL ONE (23:02)
[2018-09-13 23:03] LABS: Bilirubin Negative (Negative); Blood, Urine Negative (Negative); Clarity Clear (Clear); Glucose, Urine (Dipstick) 250 mg/dL (Negative); Leukocyte Small (Negative); Nitrite Negative (Negative); Protein, Urine (Dipstick) Negative (Neg-Trace); Urobilinogen 0.2 mg/dL (0.2-1.0)
[2018-09-13 23:06] LABS: RBC/HPF 0-3 HPF (0-3)
[2018-09-13 23:07] LABS: Bacteria/HPF None Seen HPF (None Seen); Squamous Epithelial 0-3 HPF (0-3)
[2018-09-13 23:10] LABS: ALT (SGPT) 16 U/L (8-55); AST (SGOT) 23 U/L (5-34); Albumin 4.3 g/dL (3.4-4.8); Alkaline Phosphatase 118 U/L (40-150); Anion Gap 14 mmol/L (10-20); BUN (Urea Nitrogen) 17 mg/dL (9.8-20.1); Bilirubin, Total 0.2 mg/dL (0.2-1.2); Calc. Creatinine Clearance 0 mL/min (70-130); Calcium 10.2 mg/dL (7.8-10.44); Carbon Dioxide 23 mmol/L (23-31); Chloride 104 mmol/L (98-107); Estimated GFR-MDRD 43; Globulin 2.9 g/dL (2.4-3.5); Glucose 263 mg/dL (83-110); Protein, Total 7.2 g/dL (6.0-8.3); Sodium 137 mmol/L (136-145)
--- NOTE | 2018-09-13 23:57 | CT ---
CT ABDOMEN AND PELVIS WITH IV CONTRAST: 09/13/18 HISTORY: Left lower quadrant abdominal pain. FINDINGS: Comparison made with exam of 07/13/16 and 06/20/14. Calcified granuloma within the lower lungs are again seen. There is mild dependent changes in the yohannes g bases. The liver, spleen, pancreas, left adrenal gland and kidneys are normal. The 2 cm right adren al adenoma is stable. The patient is post cholecystectomy. There are tiny calcifications consistent w ith old granulomatous disease in the spleen. There are vascular calcifications without evidence of an eurysmal dilatation of the abdominal aorta. There are degenerative changes in the spine. There is col onic diverticulosis with thickening of a segment of the colon in the left lower quadrant with adjacen t inflammatory changes consistent with diverticulitis. No abnormally loculated fluid collection is se en to suggest abscess formation. IMPRESSION: Colonic diverticulosis with diverticulitis in the left lower quadrant. POS: [facility]
[2018-09-14] MEDS ORDERED: Levofloxacin 500 mg/D5W 100 ml Premix Bag ONE (00:12)
== END 2018-09-14 01:28 | disposition home or self-care (01) ==
LOC: NAV ERS 22:07
DX: K57.32 Diverticulitis of large intestine without perforation or abscess without bleeding (principal); I25.10 Atherosclerotic heart disease of native coronary artery without angina pectoris; E11.9 Type 2 diabetes mellitus without complications; E03.9 Hypothyroidism, unspecified; K21.9 Gastro-esophageal reflux disease without esophagitis; E78.5 Hyperlipidemia, unspecified; I10 Essential (primary) hypertension; F41.9 Anxiety disorder, unspecified; F17.210 Nicotine dependence, cigarettes, uncomplicated; Z87.01 Personal history of pneumonia (recurrent); Z79.891 Long term (current) use of opiate analgesic; Z79.899 Other long term (current) drug therapy; Z79.82 Long term (current) use of aspirin; Z79.84 Long term (current) use of oral hypoglycemic drugs
CPT/HCPCS: 74177; 80053; 81003; 81015; 85025; 96361; 96365; 96375; J1885; J1956; J2270; J2405; J7050; Q9967

== ENCOUNTER 2019-06-16 14:09 | Emergency (ER) | payer MEDICARE, OTHER ==
[2019-06-16 14:47] LABS: Bilirubin Negative (Negative); Blood, Urine Negative (Negative); Clarity Clear (Clear); Glucose, Urine (Dipstick) Negative (Negative); Leukocyte Negative (Negative); Nitrite Negative (Negative); Protein, Urine (Dipstick) Trace mg/dL (Neg-Trace); Urobilinogen 0.2 mg/dL (Less than 2)
[2019-06-16] MEDS ORDERED: Morphine 2 MG/ML SYRINGE ONE (14:48)
[2019-06-16] MEDS ORDERED: Ondansetron PF 4 MG/2 ML Vial ONE (14:48)
[2019-06-16 14:55] LABS: #Basophils 0.1 thou/uL (0.0-0.2); #Eosinphils 0.3 thou/uL (0.0-0.7); #Lymphocytes 2.1 thou/uL (1.20-3.40); #Monocytes 0.5 thou/uL (0.11-0.59); #Neutrophils 3.1 thou/uL (1.40-6.50); %Basophils 0.9 % (0.0-1.0); %Eosinophils 5.8 % (0.0-10.0); %Lymphocytes 34.7 % (21.0-51.0); %Neutrophils 50.7 % (42.0-75.0); Hemoglobin 11.1 g/dL (12.0-16.0); Mean Corpuscular HGB CONC 33.5 g/dL (32.0-36.0); Mean Corpuscular Hemoglobin 29.5 pg (27.0-31.0); Mean Corpuscular Volume 88.1 fL (78.0-98.0); Mean Platelet Volume 8.2 fL (7.4-10.4); Platelet Count 192 thou/uL (130-400); RBC Distribution Width 12.5 % (11.5-14.5); Red Blood Cell (RBC) Count 3.76 mill/uL (4.20-5.40)
[2019-06-16 15:23] LABS: ALT (SGPT) 17 U/L (8-55); AST (SGOT) 14 U/L (5-34); Albumin 4.1 g/dL (3.4-4.8); Alkaline Phosphatase 121 U/L (40-110); Anion Gap 16 mmol/L (10-20); BUN (Urea Nitrogen) 29 mg/dL (9.8-20.1); Bilirubin, Total 0.3 mg/dL (0.2-1.2); Calc. Creatinine Clearance 0 mL/min (70-130); Calcium 10.1 mg/dL (7.8-10.44); Carbon Dioxide 22 mmol/L (23-31); Chloride 105 mmol/L (98-107); Estimated GFR-MDRD 34; Globulin 2.8 g/dL (2.4-3.5); Glucose 181 mg/dL (83-110); Lipase 52 U/L (8-78); Potassium 4.2 mmol/L (3.5-5.1); Protein, Total 6.9 g/dL (6.0-8.3); Sodium 139 mmol/L (136-145)
--- NOTE | 2019-06-16 15:57 | CT ---
CT abdomen and pelvis noncontrast HISTORY: Right flank pain. COMPARISON: 09/13/2018. FINDINGS: Mild atelectasis at the lung bases. Calcified mediastinal lymph nodes consistent with heale d granulomatous disease. Each renal collecting system, ureter, and urinary bladder are decompressed without stone evident. Lack of contrast limits evaluation for other abnormalities. Right adrenal adenoma is stable. Gallblad tommy surgically absent. Fusiform ectasia of the lower abdominal aorta with prominent arterial calcification. Diverticula arise from the colon without adjacent inflammation. Prominent degenerative changes lumbar spine. IMPRESSION: No CT evidence of urinary tract obstruction or calcification. Diverticulosis. No evidence of diverticulitis. Atherosclerosis. Chronic-type findings are stable.
== END 2019-06-16 16:18 | disposition home or self-care (01) ==
LOC: NAV ERS 14:09
DX: R10.9 Unspecified abdominal pain (principal); N28.9 Disorder of kidney and ureter, unspecified; I25.10 Atherosclerotic heart disease of native coronary artery without angina pectoris; E11.9 Type 2 diabetes mellitus without complications; E03.9 Hypothyroidism, unspecified; K21.9 Gastro-esophageal reflux disease without esophagitis; E78.5 Hyperlipidemia, unspecified; E78.00 Pure hypercholesterolemia, unspecified; I10 Essential (primary) hypertension; F41.9 Anxiety disorder, unspecified; F17.210 Nicotine dependence, cigarettes, uncomplicated; Z79.82 Long term (current) use of aspirin; Z79.84 Long term (current) use of oral hypoglycemic drugs; Z79.899 Other long term (current) drug therapy
CPT/HCPCS: 74176; 80053; 81003; 83690; 85025; 96374; 96375; J2270; J2405

== ENCOUNTER 2019-12-25 13:54 | Emergency (ER) | payer MEDICARE, OTHER ==
[2019-12-26 14:40] LABS: SARS-CoV-2 MS2 Positive; SARS-CoV-2 N Gene Negative; SARS-CoV-2 S Gene Negative; SARS-CoV-2 orf1ab Negative
== END 2019-12-25 16:01 | disposition home or self-care (01) ==
LOC: NAV ERS 13:54
DX: Z20.828 Contact with and (suspected) exposure to other viral communicable diseases (principal); I10 Essential (primary) hypertension; I25.10 Atherosclerotic heart disease of native coronary artery without angina pectoris; E11.9 Type 2 diabetes mellitus without complications; E03.9 Hypothyroidism, unspecified; K21.9 Gastro-esophageal reflux disease without esophagitis; E78.5 Hyperlipidemia, unspecified; F41.9 Anxiety disorder, unspecified; F17.210 Nicotine dependence, cigarettes, uncomplicated; Z79.899 Other long term (current) drug therapy; Z79.82 Long term (current) use of aspirin; Z79.84 Long term (current) use of oral hypoglycemic drugs
CPT/HCPCS: 87635; 99283; U0003